=== PATIENT | male | born 1980 | race Hispanic/Latino ===

== ENCOUNTER 2021-01-25 09:30 | Emergency (ER) | payer OTHER, SELFPAY ==
[2021-01-25 09:48] VITALS: BP 132/75; PULSE 59; RESP 16; TEMP 36.6; O2SAT 100
--- NOTE | 2021-01-25 10:16 | ED.BACK ---
HPI - Back Pain/Injury General Chief Complaint: Back Pain/Injury Stated Complaint: back pain Time Seen by Provider: 01/25/21 10:10 Source: patient Mode of arrival: ambulatory Limitations: no limitations History of Present Illness HPI Narrative: Santo Thorpe is a 40-year-old male who comes to [facility] with pain in his lower right back that started 2 days ago when he was digging for work and and yesterday when he was taking a got much worse. He is walking and sitting stiffly, has pinpoint pain at the base of his lumbar spine on the right. He tried some Aleve with no improvement Related Data Allergies Allergy/AdvReac Type Severity Reaction Status Date / Time No Known Allergies Allergy Verified 01/25/21 09:58 Review of Systems Review of Systems: Narrative: CONSTITUTIONAL: Denies fever, chills, sweats. EYES: Denies visual changes, redness, discharge. ENT: Denies rhinorrhea, congestion, sore throat, otalgia. CARDIOVASCULAR: Denies chest pain, palpitations, edema. RESPIRATORY: Denies dyspnea, wheezing, cough GASTROINTESTINAL: Denies abdominal pain, nausea, vomiting, diarrhea. GENITOURINARY: Denies dysuria, hematuria, abnormal discharge SKIN: Denies rash or itching. NEUROLOGIC: Denies numbness, or focal weakness. PSYCHIATRIC: Denies anxiety or depression. Right-sided lower lumbar pain PMFSH Past Medical History Medical History No acute medical problems Family History Family History Other Diabetes mellitus Social History Social History (Updated 01/25/21 @ 10:20 by Patrica Stanley CNP) Smoking packs per day: 1 Smoking cigarettes per day: 20.0 Smoking status: Current every day smoker Alcohol intake: current Gender identity (if verbalized by the patient): Male Comments At time of signature, I agree with nursing past medical, surgical, social and family history. There is no relevant family history pertinent to the presenting complaint. Exam Narrative: Exam Narrative: GENERAL: This is a well-nourished, well-developed patient, in mild distress. HEAD: normocephalic, atraumatic. EYES: Sclera clear/white. Vision is grossly intact. EARS: External ears normal. Hearing grossly intact. NOSE: External nose normal without nasal discharge, nares without redness, no rhinorrhea. THROAT: Mucous membranes moist, NECK: Neck supple, non-tender CARDIOVASCULAR: Regular rate and rhythm without murmurs, gallops, or rubs. RESPIRATORY: Clear to auscultation. Breath sounds equal bilaterally. No wheezes, rales, or rhonchi. GASTROINTESTINAL: Abdomen soft, non-tender, SKIN: warm, intact with no suspicious lesions or rash, good texture and turgor. NEURO: awake, alert, and oriented to person, place and time. There were no obvious focal neurologic abnormalities. Steady gait EXTREMITIES: Normal range of motion. BACK: Tender on lower right without deformity. Patient is moving stiffly Course Course Emergency Course: 4-year-old patient comes to [facility] with complaints of lower right back pain that is aggravated by taking the job he works at Prefer sciatica started on prednisone 60 mg today with a Medrol Dosepak, baclofen, ibuprofen, tramadol Discussed stretching exercises and not mixing alcohol with pain medication Vital Signs Vital signs: Vital Signs Temperature 97.9 F 01/25/21 09:48 Pulse Rate 59 L 01/25/21 09:48 Respiratory Rate 16 01/25/21 09:48 Blood Pressure 132/75 01/25/21 09:48 Pulse Oximetry 100 01/25/21 09:48 Temperature 97.9 F 01/25/21 09:48 Pulse Rate 59 L 01/25/21 09:48 Respiratory Rate 16 01/25/21 09:48 Blood Pressure 132/75 01/25/21 09:48 Pulse Oximetry 100 01/25/21 09:48 MDM - Back Pain/Injury Differential Diagnosis Differential diagnosis: Likely lumbar radiculopathy, sciatica, strain of lumbar region and other Critical Care Time Critical Care Time Crit
[2021-01-25] MEDS: predniSONE 20 MG TABLET 60 MG PO (10:35)
== END 2021-01-25 10:35 | disposition home or self-care (01) ==
PROVIDERS: Emergency Provider Nurse Practitioner
DX: M54.31 Sciatica, right side (principal); F17.210 Nicotine dependence, cigarettes, uncomplicated
CPT/HCPCS: 99213; G0463; J7512

== ENCOUNTER 2021-06-07 16:06 | Emergency (ER) | payer OTHER, SELFPAY ==
[2021-06-07 16:22] VITALS: BP 145/87; PULSE 74; RESP 16; TEMP 37.2; O2SAT 99
--- NOTE | 2021-06-07 16:49 | ED.GENADULT ---
HPI - General Adult General Chief complaint: Ear Stated complaint: Left Ear Pain Source: patient and family (, Significant other. ) Mode of arrival: ambulatory Limitations: no limitations History of Present Illness HPI narrative: 40 y/o male. PMHx none reported. Presents to [facility] today with acute complaints of LT side ear ache, worsening in the past 72 hours. Pt denies acute auditory trauma or loss. No nasal congestion, cough, or additional illness. He reports a 'throbbing' type sensation, refractory to home remedies. He is without additional acute c/o illness upon PE. Related Data Allergies Allergy/AdvReac Type Severity Reaction Status Date / Time No Known Allergies Allergy Verified 06/07/21 16:20 Review of Systems Review of Systems: CONSTITUTIONAL: Denies fever, chills, sweats. EYES: Denies visual changes, redness, discharge. ENT: Denies rhinorrhea, congestion, sore throat. Positive otalgia LT. CARDIOVASCULAR: Denies chest pain, palpitations, edema. RESPIRATORY: Denies dyspnea, wheezing, cough GASTROINTESTINAL: Denies abdominal pain, nausea, vomiting, diarrhea. GENITOURINARY: Denies dysuria, hematuria, abnormal discharge SKIN: Denies rash or itching. MUSCULOSKELETAL: Denies acute back pain, joint pain, or myalgia. NEUROLOGIC: Denies numbness, or focal weakness. PSYCHIATRIC: Denies anxiety or depression. All systems reviewed & are unremarkable except as noted in HPI and below PMFSH Past Medical History Medical History No acute medical problems Family History Family History Other Diabetes mellitus Social History Social History Smoking packs per day: 1 Smoking cigarettes per day: 20.0 Smoking status: Current every day smoker Alcohol intake: current Gender identity (if verbalized by the patient): Male Exam Narrative: GENERAL: This is a well-nourished, well-developed adult, in no apparent distress. HEAD: normocephalic, atraumatic. EYES: PERRL. EARS: External ears normal. Lt auditory canal is erythematous with TM Bulging. No TM perforation or obstruction. RT auditory exam is normal. No auditory loss. NOSE: External nose normal. No Rhinorrhea, no obstruction, nares patent. THROAT: Mucous membranes moist, posterior pharynx clear. No exudates. NECK: Neck supple, non-tender without lymphadenopathy, masses or thyromegaly. CARDIOVASCULAR: Regular rate and rhythm without murmurs, gallops, or rubs. RESPIRATORY: Clear to auscultation. GASTROINTESTINAL: Abdomen soft, non-tender, nondistended. SKIN: warm, intact NEURO: Alert, active, and age appropriate. No focal neurologic deficits. Course Vital Signs Vital signs: Vital Signs Temperature 37.2 C 06/07/21 16:22 Pulse Rate 74 06/07/21 16:22 Respiratory Rate 16 06/07/21 16:22 Blood Pressure 145/87 H 06/07/21 16:22 Pulse Oximetry 99 06/07/21 16:22 Temperature 37.2 C 06/07/21 16:22 Pulse Rate 74 06/07/21 16:22 Respiratory Rate 16 06/07/21 16:22 Blood Pressure 145/87 H 06/07/21 16:22 Pulse Oximetry 99 06/07/21 16:22 Medical Decision Making MDM Narrative Medical decision making narrative: -Physical exam is consistent with Otitis Media LT. -No auditory deficits. -Start Neomycin Polymyxin Gtts regimen as directed. IBU 800 PO TID PRN for pain. -PCP F/U 1 WK. -ER W/emergent health status changes. Pt agrees. Differential Diagnosis Differential Diagnosis: Differential Diagnosis: Consideration of the following conditions may be warranted for the presenting problem, they are not final diagnoses: Otitis media, otitis externa, perforated TM, foreign body or cerumen impaction, ruptured TM, acute mastoiditis, dental or intraoral infection, or other. Medical Records Medical records reviewed: Yes I reviewed the external salty
== END 2021-06-07 16:39 | disposition home or self-care (01) ==
PROVIDERS: Emergency Provider Nurse Practitioner Adult Health
DX: H60.92 Unspecified otitis externa, left ear (principal); F17.210 Nicotine dependence, cigarettes, uncomplicated
CPT/HCPCS: 99213; G0463

== ENCOUNTER 2021-11-28 16:02 | Emergency (ER) | payer OTHER, SELFPAY ==
--- NOTE | ~2021-11-28 | XR_ITS ---
EXAMINATION: XR chest 2V DATE: 11/28/2021 16:33 INDICATION: Shortness of breath. TECHNIQUE: Frontal and lateral views of the chest were obtained. COMPARISON: Thoracic spine radiographs 12/17/2016 FINDINGS: The chest demonstrates clear lungs without pneumonia, pleural effusion, or pneumothorax. Th e heart size is normal. IMPRESSION: 1. No acute cardiopulmonary disease. Reviewed, dictated and finalized at location A.
--- NOTE | 2021-11-28 16:03 | ED.SOB ---
HPI - SOB/Dyspnea General Chief Complaint: Upper Respiratory Infection Stated Complaint: sob/back pain Time Seen by Provider: 11/28/21 16:15 Source: patient Mode of arrival: ambulatory Limitations: no limitations History of Present Illness HPI Narrative: Mr. Anderson is a 40-year-old male patient presenting to the clinic today with complaints of shortness of breath and back pain. 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 Reports that it hurts to sit and change positions however laying down helps alleviate the pain. Shortness of breath started this morning as he is also having some acid reflux symptoms. Reports of burning pain into the midsternal area that is radiating up into the throat and is having difficulty breathing during this pain. He is a current smoker and is currently in taking alcohol. States that he is drinking at least (6)24 ounce beers daily and he is smoking while drinking. Currently rates pain in the back a 10 out of 10 and pain in chest and 8 out of 10. Related Data Allergies Allergy/AdvReac Type Severity Reaction Status Date / Time No Known Allergies Allergy Verified 06/07/21 16:20 Review of Systems Review of Systems: Pertinent positives per HPI. Patient denies any fever, chills, rash, headache, visual changes, dizziness, cough, runny nose, sore throat, chest pain, palpitations, nausea, vomiting, diarrhea, constipation, abdominal pain, or any urinary issues. PMFSH Past Medical History Medical History No acute medical problems Family History Family History Other Diabetes mellitus Social History Social History Smoking packs per day: 1 Smoking cigarettes per day: 20.0 Smoking status: Current every day smoker Alcohol intake: current Gender identity (if verbalized by the patient): Male Comments At the time of my signature, I reviewed and agree with the nursing past medical, surgical, social, and family history. There is no relevant family history pertinent to the patient complaint. Exam Narrative: General: Well-developed, well nourished, in no apparent distress Head: Normocephalic, atraumatic Eyes: Pupils equally round and reactive to light bilaterally, EOM intact, sclera and conjunctive clear, no discharge, lids normal Ears: TMs intact and clear, ear canals clear, no drainage, grossly hearing normal. Nose: Nares patent, no discharge, no inflammation, no sinus tenderness. Mouth: Oropharynx without lesions or masses, good dentition, MMM. Neck: Supple, trachea midline, no enlargement of anterior or posterior cervical nodes, no thyroid masses or goiter palpable. Cardio: Regular rate and rhythm, s1 and s2 normal, no murmur appreciated. Resp: Clear to auscultation bilaterally anteriorly and posteriorly, no rhonchi, rales, wheezing or rubs Musculoskeletal: No deformity, no scoliosis, tenderness to palpation over the right lower back with exacerbating pain with bending and flexing the back, patellar reflexes 2/4 bilaterally, straight leg test positive on the right at approximately 35 degrees, negative foot drop, cautious gait. Slow to change position Course Course Emergency Course: Portions of this record may have been created with voice recognition software. Level of Care: Express Care Visit Vital Signs Vital signs: Vital Signs Temperature 37.1 C 11/28/21 16:12 Pulse Rate 72 11/28/21 16:12 Respiratory Rate 16 11/28/21 16:12 Blood Pressure 167/96 H 11/28/21 16:12 Pulse Oximetry 99 11/28/21 16:12 Temperature 37.1 C 11/28/21 16:12 Pulse Rate 72 11/28/21 16:12 Respiratory Rate 16 11/28/21 16:12 Blood Pressure 167/96 H 11/28/21 16:12 Pulse Oximetry 99 11/28/21 16:12 Vital signs reviewe
[2021-11-28 16:12] VITALS: BP 167/96; PULSE 72; RESP 16; TEMP 37.1; O2SAT 99
[2021-11-28] MEDS: KETOROLAC (*BKC) 60 MG/2 ML VIAL IM (16:48)
[2021-11-28] MEDS: BELLADONNA ALK/PHENOB ELIX 10 ML, MAG HYDROX/ALUMINUM HYD/SIMETH 30 ML, LIDOCAINE HCL 2... PO (16:53)
== END 2021-11-28 17:19 | disposition home or self-care (01) ==
PROVIDERS: Emergency Provider Nurse Practitioner Family
DX: S39.012A Strain of muscle, fascia and tendon of lower back, initial encounter (principal); X50.3XXA Overexertion from repetitive movements, initial encounter; Y93.H1 Activity, digging, shoveling and raking; Y99.0 Civilian activity done for income or pay; K21.9 Gastro-esophageal reflux disease without esophagitis; F17.210 Nicotine dependence, cigarettes, uncomplicated
CPT/HCPCS: 71046; 96372; 99213; A9270; G0463; J1885

== ENCOUNTER 2023-01-22 20:56 | Emergency (ER) | payer OTHER, SELFPAY ==
[2023-01-22 21:12] VITALS: BP 161/86; PULSE 78; RESP 18; TEMP 36.8; O2SAT 98
--- NOTE | 2023-01-22 21:41 | PC.NURSE ---
states pt was installing wooden posts approx 1.5 hrs ago when one came down on his right shoulder and struck the right side of his head. Approx 2cm laceration noted. Bleeding is controlled. Pt denies LOC but does endorse mild dizziness. Denies n/v. Not up to date on tetanus.
[2023-01-22] MEDS: ACETAMINOPHEN 500 MG TABLET 1000 MG PO (22:54)
[2023-01-22] MEDS: TETANUS,DIPHTHERIA,AC PERTUSSIS ADULT (0.5 ML) BOOSTRIX IM (22:55)
--- NOTE | 2023-01-22 23:03 | ED.GENADULT ---
HPI - General Adult General Chief complaint: Head Injury Stated complaint: head injury Time Seen by Provider: 01/22/23 21:32 History of Present Illness HPI narrative: this is a 42-year-old male presenting ED with chief complaint of a head laceration. He was at work when a piece of wood fell and struck the back his head. He has no loss of consciousness, no persistent vomiting or neurologic deficits. He has a 2.5 cm laceration to back of scalp. Unknown last tetanus. Related Data Allergies Allergy/AdvReac Type Severity Reaction Status Date / Time No Known Allergies Allergy Verified 01/22/23 22:54 Exam Narrative: APPEARANCE: No apparent distress. Head: 2.5 cm laceration to the patient's scalp EYES: EOMI, NOSE: Atraumatic NECK: Trachea midline RESPIRATORY: No increased rate of breathing CARDIOVASCULAR: RRR, ABDOMINAL: Non-distended MUSCULOSKELETAl: No obvious deformities NEURO: Alert. Cranial nerves 2-12 grossly intact. Sensation light touch, motor function cerebellar function intact for 4 extremities. Gait exam was normal. SKIN:: Warm, dry. Normal color PSYCHIATRIC: Normal affect Course Vital Signs Vital signs: Vital Signs Temperature 98.3 F 01/22/23 21:12 Pulse Rate 78 01/22/23 21:12 Respiratory Rate 18 01/22/23 21:12 Blood Pressure 161/86 H 01/22/23 21:12 Pulse Oximetry 98 01/22/23 21:12 Oxygen Delivery Room Air 01/22/23 21:12 Temperature 98.3 F 01/22/23 21:12 Pulse Rate 78 01/22/23 21:12 Respiratory Rate 18 01/22/23 21:12 Blood Pressure 161/86 H 01/22/23 21:12 Pulse Oximetry 98 01/22/23 21:12 Oxygen Delivery Room Air 01/22/23 21:12 Procedures Laceration Laceration 1: Date: 01/22/23 Site: scalp Side (If applicable): right Size (cm): 2.5 Description: linear Depth: simple, single layer ====== Skin Level ====== Skin layer closed with: candis ====== Subcutaneous Layer ====== ====== Muscle Layer ====== ====== Tendon Layer ====== Medical Decision Making [facility] Narrative Medical decision making narrative: -Presentation: 42-year-old male presenting with scalp laceration. -DDX includes but is not limited to: Scalp laceration, concussion -Co-morbidities complicating care: none tetanus status -Social determinants of health: patient works in construction, lives with his Teresa -External Chart Review: none -Hx from independent Sources: bedside -Discussion of Management/Consultants: none -Independent interpretation of studies: none Dx tests considered but not ordered: CT head - Low risk per [place] [facility] rules. -Procedures: laceration repair with candis -Interventions: Tdap booster , Tylenol -Shared decision making / Disposition: patient is discharged with primary care follow-up. -RX Vital Signs Vital Signs: Vital Signs Temperature 98.3 F 01/22/23 21:12 Pulse Rate 78 01/22/23 21:12 Respiratory Rate 18 01/22/23 21:12 Blood Pressure 161/86 H 01/22/23 21:12 Pulse Oximetry 98 01/22/23 21:12 Oxygen Delivery Room Air 01/22/23 21:12 Temperature 98.3 F 01/22/23 21:12 Pulse Rate 78 01/22/23 21:12 Respiratory Rate 18 01/22/23 21:12 Blood Pressure 161/86 H 01/22/23 21:12 Pulse Oximetry 98 01/22/23 21:12 Oxygen Delivery Room Air 01/22/23 21:12 Discharge Plan Discharge Clinical Impression: Closed head injury, Scalp injury Patient Disposition: Home, Self-Care Condition: Stable Instructions: Antibiotic Form, Concussion (ED), Staple Care (ED) Additional Instructions: You were seen in the emergency department for a scalp laceration. Please return to a medical professional in 7 days to have it removed. He can return at any time if you develop altered mental status, persistent vomiting or weakness in extremity. Follow-up/Referrals: PHYSICIAN,TRAVEL WRITER [Primary Care Provider] -
[2023-01-22 23:30] VITALS: BP 140/74; PULSE 90; RESP 15; TEMP 37; O2SAT 100
== END 2023-01-22 23:30 | disposition home or self-care (01) ==
PROVIDERS: Emergency Provider Emergency Medicine
DX: S01.01XA Laceration without foreign body of scalp, initial encounter (principal); Z23 Encounter for immunization; W20.8XXA Other cause of strike by thrown, projected or falling object, initial encounter
CPT/HCPCS: 12001; 90471; 90715; 99283; A9270

== ENCOUNTER 2023-01-30 16:48 | Emergency (ER) | payer OTHER, SELFPAY ==
--- NOTE | 2023-01-30 16:56 | ED.WOUNDLAC ---
HPI - Wound/Laceration General Chief Complaint: Wound/Laceration Stated Complaint: Staple Removal Time Seen by Provider: 01/30/23 16:57 Source: patient Mode of arrival: ambulatory Limitations: no limitations History of Present Illness HPI narrative: Patient is a 42-year-old male who presents with 4 candis and head that were placed 01/22. Is asking for removal. Denies any headache, vision changes, nausea, vomiting, or oozing from wound. Related Data Home Medications Medication Instructions Recorded Confirmed No Home Medications 01/30/23 01/30/23 Allergies Allergy/AdvReac Type Severity Reaction Status Date / Time No Known Allergies Allergy Verified 01/30/23 16:57 Review of Systems Review of Systems: All systems reviewed & are unremarkable except as noted in HPI and below Constitutional: Constitutional: Denies body ache(s), Denies chills, Denies fatigue, Denies fever(s), Denies headache(s), Denies malaise and Denies weakness Eyes: Eyes: Denies blurry vision, Denies irritation and Denies loss of vision ENT: Denies otalgia, Denies headache(s), Denies nasal discharge, Denies sinus pain and Denies sore throat Cardiovascular: Cardiovascular: Denies chest pain, Denies irregular heart rhythm and Denies dyspnea Respiratory: Respiratory: Denies dyspnea Gastrointestinal: Gastrointestinal: Denies abdominal pain, Denies melena, Denies hematochezia, Denies diarrhea, Denies nausea and Denies vomiting Musculoskeletal: Musculoskeletal: Denies back pain, Denies myalgias and Denies arthralgias Integumentary/Breasts: Skin/Breast: Denies pruritus, Denies rash and Reports other (Staple removal from head) Neurologic: Denies headache(s), Denies loss of vision and Denies weakness Psychiatric: Psychiatric: Reports no additional psychiatric complaints Endocrine: Endocrine: Denies fatigue PMFSH Past Medical History Medical History (Updated 01/30/23 @ 17:06 by Madie Santos APRN) No acute medical problems Family History Family History (System 01/27/23 @ 09:52 by Ruchi Gomez) Other Diabetes mellitus Social History Social History (System 01/27/23 @ 09:52 by Ruchi Gomez) Smoking packs per day: 1 Smoking cigarettes per day: 20.0 Smoking status: Current every day smoker Alcohol intake: current Gender identity (if verbalized by the patient): Male Comments At time of signature, agree with nursing past medical, surgical, social and family history. There is no relevant family history pertinent to the presenting complaint. Exam Const: General: cooperative, healthy appearing, comfortable, no acute distress and well nourished Nutritional Appearance: well nourished Orientation/consciousness: patient oriented x3 Limitations: no limitations HENMT: Head: normal to inspection, normocephalic, atraumatic and laceration (4 candis removed) right parietal linear Ears: hearing grossly normal bilaterally and external ears normal Face/Nose/Sinus: Normal external nose present, normal facial exam and face symmetric Face and sinus: normal facial exam and face symmetric Mouth: Yes lip normal Eyes: General: appearance normal, both eyes and all related structures Alignment and Position: alignment normal and position normal Periorbital: periorbital findings normal Eyelids: eyelids normal Pupils: Equal, round and reactive pupils present EOM: EOMs intact bilaterally Neck: Neck: normal visual inspection, full ROM and supple Chest: Chest palpation & inspection: normal inspection of the chest Resp: Effort & Inspection: normal respiratory effort and able to speak in complete sentences Auscultation: clear to auscultation bilaterally Cardio: Rate: regular rate Rhythm: regular rhythm Heart sounds: S1 normal heart sound present and S2 normal heart sound present GI: Inspection: normal to inspection Skin: General skin exam: normal color and no rashes or lesions noted Neuro: General: patient oriented x3 and moves all e
[2023-01-30 16:58] VITALS: BP 145/80; PULSE 84; RESP 16; TEMP 37.2; O2SAT 97
== END 2023-01-30 17:08 | disposition home or self-care (01) ==
PROVIDERS: Emergency Provider Nurse Practitioner Family
DX: S01.01XD Laceration without foreign body of scalp, subsequent encounter (principal); X58.XXXD Exposure to other specified factors, subsequent encounter; F17.210 Nicotine dependence, cigarettes, uncomplicated
CPT/HCPCS: 99211; G0463

== ENCOUNTER 2024-02-20 22:18 | Emergency (ER) | payer OTHER, SELFPAY ==
[2024-02-20 22:20] VITALS: BP 151/104; PULSE 110; RESP 20; TEMP 36.4; O2SAT 99
--- NOTE | 2024-02-20 23:04 | PC.NURSE ---
Patient and his come to desk to state they are leaving and going to a different hospital. Patient informed of risks of leaving before being seen by a provider and benefits of staying to be evaluated. Patient and a/ox4, verbalized understanding and ambulated out of the ED with a steady gait with belongings in hand. Patient marked as left without being seen, triaged.
== END 2024-02-20 23:05 | disposition left against medical advice (07) ==
LOC: ANHED 23:08
DX: R11.2 Nausea with vomiting, unspecified (principal)
CPT/HCPCS: 99199

== ENCOUNTER 2024-02-21 10:28 | Emergency (ER) | payer OTHER, SELFPAY ==
[2024-02-21 10:41] VITALS: BP 156/85; PULSE 66; RESP 16; TEMP 36.8; O2SAT 100
--- NOTE | 2024-02-21 10:56 | ED.GENADULT ---
HPI - General Adult General Chief complaint: Dizziness Stated complaint: heartburn/dizzy Time Seen by Provider: 02/21/24 10:56 Source: patient Mode of arrival: ambulatory Limitations: no limitations History of Present Illness HPI narrative: 43-year-old male presents with complaint of epigastric pain radiating to mid back, burning feeling in esophagus, dizziness, fatigue, nausea, sweating since yesterday. Patient went to ER last night. Visitor states he waited 30 minutes and left. felt that there were too many people waiting and waiting room. Taking [id number] omeprazole without relief of symptoms. Patient reports history of similar symptoms and was given Protonix which helped. Did eat several spicy foods yesterday for 18 of February celebration and also drank a beer. States drink a soda and made symptoms worse. All systems reviewed and negative except as noted above. Related Data Allergies Allergy/AdvReac Type Severity Reaction Status Date / Time No Known Allergies Allergy Verified 02/21/24 10:48 Review of Systems Review of Systems: CONSTITUTIONAL: Denies fever, chills . Reports sweats and fatigue. EYES: Denies visual changes, redness, or discharge. ENT: Denies rhinorrhea, congestion, sore throat, or otalgia. CARDIOVASCULAR: Denies chest pain, palpitations, or edema. RESPIRATORY: Denies cough or dyspnea. GASTROINTESTINAL: Ports epigastric abdominal pain, nausea. Denies vomiting, or diarrhea. GENITOURINARY: Denies dysuria or hematuria. SKIN: Denies rash or itching. MUSCULOSKELETAL: Denies back pain, joint pain, or myalgia. NEUROLOGIC: Denies headache, numbness, or weakness. reports dizziness. PSYCHIATRIC: Denies anxiety or depression. All other systems reviewed are negative, except as documented in HPI. [facility] Past Medical History Medical History (Updated 02/21/24 @ 11:27 by Key Orellana NP) No acute medical problems Family History Family History (System 01/27/23 @ 09:52 by Ruchi Gomez) Other Diabetes mellitus Social History Social History (System 01/27/23 @ 09:52 by Ruchi Gomez) Smoking packs per day: 1 Smoking cigarettes per day: 20.0 Smoking status: Current every day smoker Alcohol intake: current Gender identity (if verbalized by the patient): Male Comments At time of signature, agree with nursing past medical, surgical, social and family history. There is no relevant family history pertinent to the presenting complaint. Exam Narrative: GENERAL: This is a well-nourished, well-developed patient, in no apparent distress. HEAD: normocephalic, atraumatic. EYES: PERRL. Sclera clear/white. Vision is grossly intact. EARS: External ears normal NOSE: External nose normal NECK: Neck supple, non-tender without lymphadenopathy, masses or thyromegaly. CARDIOVASCULAR: Regular rate and rhythm without murmurs, gallops, or rubs. RESPIRATORY: Clear to auscultation. Breath sounds equal bilaterally. No wheezes, rales, or rhonchi. GASTROINTESTINAL: Abdomen soft, Epigastric pain, nondistended. Bowel sounds are active. No hepato-splenomegaly, or palpable masses. No guarding. SKIN: warm, Dry, intact with no suspicious lesions or rash, good texture and turgor. NEURO: awake, alert, and oriented to person, place and time. There were no obvious focal neurologic abnormalities. EXTREMITIES: No joint tenderness, effusion, or edema noted. Course Course Level of Care: Express Care Visit Vital Signs Vital signs: Vital Signs Temperature 36.8 C 02/21/24 10:41 Pulse Rate 66 02/21/24 10:41 Respiratory Rate 16 02/21/24 10:41 Blood Pressure 156/85 H 02/21/24 10:41 Pulse Oximetry 100 02/21/24 10:41 Oxygen Delivery Room Air 02/21/24 10:41 Temperature 36.8 C 02/21/24 10:41 Pulse Rate 66 02/21/24 10:41 Respiratory Rate 16 02/21/24 10:41 Blood Pressure 156/85 H 02/21/24 10:41 Pulse Oximetry 100 02/21/24 10:41 Oxygen Delivery Room Air
--- NOTE | 2024-02-21 11:08 | ECG_ITS ---
Test Date: 2024-02-21 11:19:26 Measurements Intervals [place] Rate: 69 P: 54 [place]: 191 QRS: -33 QRSD: 97 T: -12 QT: 378 QTc: 405 Interpretive Statements SINUS RHYTHM LEFT AXIS DEVIATION VOLTAGE CRITERIA FOR LVH BORDERLINE T WAVE ABNORMALITY- INFERIOR LEADS BORDERLINE ECG No previous ECG available for comparison Electronically Signed On 02-21-2024 14:13:11 CDT by Sahil Boswell D.O.
== END 2024-02-21 11:39 | disposition left against medical advice (07) ==
PROVIDERS: Emergency Provider Nurse Practitioner Family
DX: R10.13 Epigastric pain (principal); R42 Dizziness and giddiness; F17.210 Nicotine dependence, cigarettes, uncomplicated
CPT/HCPCS: 93005; 99213; G0463

== ENCOUNTER 2024-12-27 22:21 | Emergency (ER) | payer OTHER, SELFPAY ==
--- NOTE | ~2024-12-27 | XR_ITS ---
EXAMINATION: XR chest 2V Exam Date/Time: 12/27/2024 22:45 CDT HISTORY: chest pain Comparison: 11/28/2021. RESULT: Lines, tubes, and devices: None. Lungs and pleura: No focal consolidation, pleural effusion, or pneumothorax. Low volumes with crowdi ng. Cardiomediastinal silhouette: Stable. Other: No acute osseous or upper abdominal finding. IMPRESSION: No acute cardiopulmonary process. Reviewed, dictated and finalized at location K.
--- OUTSIDE RECORDS SUMMARY | 2024-12-27 22:24 | XMS_ITS | Patient Health Record ---
Author Organization [facility]ILL[facility]AC[facility] [email or web address] [facility] Address [address] [place] [address] Care Team Providers Care Barrel Stave Inspector Name Role Phone Kendra Ramirez Primary Care Provider [phone] REASON FOR REFERRAL No Information PLAN OF TREATMENT No Information
--- OUTSIDE RECORDS SUMMARY | 2024-12-27 22:24 | XMS_ITS | Patient Health Record ---
Author Organization [facility] [employer] [facility] Address [address] [place] [address] Care Team Providers Care Alcohol Rubber Name Role Phone Kendra Ramirez Primary Care Provider ALLERGIES No Known Allergies RESULTS Component Value Reference Range Notes Glucose Blood Test Reviewed date:02/24/2024 09:41:31 AM Interpretation: Performing Lab: Notes/Report: Glucose Blood Test 75 74 - 106 Area Relief Pilot Ramila SCHMIDT REASON FOR REFERRAL No Information MEDICATIONS Medication SIG (Take, Route, Fr equency, Duration) Notes Start Date End Date Status Advil 200 MG 1 tablet with food o r milk as needed Orally Three times a day Active Aspirin 325 MG 1 capsule Orally Once a day Active SOCIAL HISTORY Tobacco Use: Social History Observation Description Date Details (start date - stop date) Former Smoker NA - 10/06/2023 Sex Assigned At : Social History Observation Description Sex Assigned At Unknown Tobacco Use/Smoking Question Answer Notes Are you a former user When did you stop using? 10/06/2023 Alcohol Questionnaire Question Answer Notes Did you have a drink contain ing alcohol in the past year? Yes How often did you have a dri nk containing alcohol in the past year? 4 or more times a week (4 points) How many drinks did you have on a typical day when you were drinking in the past year? 5 or 6 drinks (2 points) How often did you have 6 or more drinks on one occasion in the past year? Daily or almost daily (4 points) Points 10 Interpretation Positive Section Notes: started at 13 y/o, periods o f time when he didn't smoke, but about 1/2 ppd PROBLEMS Problem Type ICD Code Onset Dates Problem Status W/U Status Risk SNOMED Code Notes Problem BMI 34.0-34.9,adult (Z68.34) Active confirmed Body mass index 30.00 to 34.99 (674688001724721) Problem Prediabetes (R73.09) Active confirmed Prediabetes (961423238) Problem Smoker (F17.200) Active confirmed Smoker (81122814) Problem GERD (gastroesophage al reflux disease) (K21.9) Active confirmed Gastroesophagea l reflux disease (813240784) Problem Obesity (E66.9) Active confirmed Obesit y (010312983) VITAL SIGNS Heart Rate 78 /min 02/24/2024 Temperature 98.1 degrees Fahrenheit 02/24/2024 Respiratory Rate 14 /min 02/24/2024 Oximetry 98 % 02/24/2024 Blood pressure diastolic 72 mm Hg 02/24/2024 Weight-kg 100.7 kg 02/24/2024 Height 68 in 02/24/2024 Blood pressure systolic 126 mm Hg 02/24/2024 Weight 222 lbs 02/24/2024 BMI 33.75 02/24/2024 Encounters Encounter Location Date Provider Diagnosis [facility] [address] [place] [address] 01/20/2024 Kendra [facility] [address] [place] [address] [facility] [address] [place] [address] 01/22/2024 Kendra [facility] [address] [place] [address] 02/24/2024 Kendra Ramirez Dizziness R42 ; GI symptoms R19.8 and Prediabetes R73.03 [facility] [address] [place] [address] 04/12/2024 Kendra [facility] [address] [place] [address] 10/21/2024 Kendra Ramirez ASSESSMENTS Encounter Date Diagnosis Assessment Notes Treatment Notes Treatment Clinical Notes Section Notes 02/24/2024 Dizziness (ICD-10 - R42) Pt reportedly fasting since yesterday (>12 hours). BG checked given reported ssx dizziness, TAYLOR, occasional fuzzy vision upon change in position - 75. Pt has access to accu-check at home, encouraged to do so when ssx develop. Reviewed a1c indicating preDM 09/2023, encouraged frequent meals low in fat and simple carbs. Encouraged pt to pair complex carbs w/protein to help moderate BG levels. Advised good hydration throughout the day. Recheck labs 03/2024. 02/24/2024 GI symptoms (ICD-10 - R19.8) Suspect PUD/GERD 2/2 noncompliance with medication regimen - reports when pt was taking meloxicam he refused to eat with it, sometimes would add aspirin if he had a TAYLOR, and only took omeprazole PRN. She states he also returned to drinking and smoking and eating worse foods then this problem started. Educated he needs to abstain from ETOH, smoking, large meals, spicy/greasy meals, and reclining after eating. Advised pt to continue pantoproazole 40mg QD 6-8 wks total. Consider GI for eval and EGD consideration if no improvement or worsening condition. Pt voiced understanding and agreement with POC as discussed. All questions and concerns were addressed to pt satisfaction. F/U 6 wks or sooner PRN. 02/24/2024 Prediabetes (ICD-10 - R73.03) 09/2023 A1c at 5.9. Encouraged ADA diet, daily exercise, weight loss for WNL BMI, adequate hydration, sleep hygiene, stress reduction. RTC for 6 mo f/u in March. 02/24/2024 Other Pt declines wo rk note. PLAN OF TREATMENT No Information Insurance Providers Payer Name Payer Address Payer Phone Subscriber Number Group Number Insured Name Patient Relationship to Insured Coverage Start Date Coverage End Date [employer] [facility] [address] [address] [place] [address] [id number] [phone] Santo Anderson Self - patient is the insured MEDICAL (GENERAL) HISTORY Medical History History ICD Code GERD (gastroesophageal reflux disease) K 21.9 Prediabetes R73.09 Obesity E66.9 BMI 34.0-34.9,adult Z68.34 Smoker F17.200 Surgical History Surgery Date(Month/Year) appendectomy 2018 Hospitalization History Reason Date(Month/Year) Appendectomy 2018
--- OUTSIDE RECORDS SUMMARY | 2024-12-27 22:24 | XMS_ITS ---
Author Organization [facility]AC[facility] [employer] [facility] Address [address] [place] [address] Care Team Providers Care Leaf Conditioner Name Role Phone Kendra Ramirez Primary Care Provider REASON FOR VISIT F/U GI issues, preDM, labs Encounters Encounter Location Date Provider Diagnosis [address] [address] 03/30/2024 Kendra Ramirez PLAN OF TREATMENT No Information Progress Notes * Santo YARBROUGHDOB:1980 (44 yo M)Acc No.[id number]:03/30/2024 Patient: Santo YARBROUGH Provider: Kendra Ramirez APRN :1980 Age:43 Y Sex:Male Date:03/30/2024 Address:[address] [place], [place] [id number] Subjective: * Chief Complaints: * 1. F/U GI issues, preDM, labs. * Medical History: Objective: Assessment: Plan: * Treatment: * Billing Information: * Visit Code: * Procedure Codes: * The named appointment provid er may or may not be the originator of this progress note, and it is not deemed complete until electronically signed by the appointment provider. Sign off status: Pending * Provider: Kendra Ramirez APRN Date: 03/30/2024
--- OUTSIDE RECORDS SUMMARY | 2024-12-27 22:24 | XMS_ITS ---
Author Organization [facility] Address [address] [place] [address] Care Team Providers Care Toe Former Name Role Phone Kendra Ramirez Primary Care Provider Encounters Encounter Location Date Provider Diagnosis [facility] [address] [place] [address] 09/11/2023 Kendra Ramirez PLAN OF TREATMENT No Information
--- OUTSIDE RECORDS SUMMARY | 2024-12-27 22:24 | XMS_ITS ---
Author Organization [facility]AC[facility] [employer] [facility] Address [address] [place] [address] Care Team Providers Care Food And Beverage Controller Name Role Phone Kendra Ramirez Primary Care Provider [phone] RESULTS Component Value Reference Range Notes Urinalysis, Routine ([id number]) Reviewed date:09/30/2023 04:08:47 PM Interpretation:Normal Performing Lab: Notes/Report: Normal NTI Urine Tube (North) Request Problem Specimen Identification Status Specimen Status Report Request Problem Bacteria Cast Type Casts Comment Crystal Type Crystals Epithelial Cells (non renal) Epithelial Cells (renal) Mucus Threads NTI Urine Culture Transport RBC Trichomonas WBC Yeast Appearance Bilirubin Glucose 0 Glucose Reflex Ketones Microscopic Examination Nitrite, Urine Occult Blood 0 pH Protein 0 Specific [place] 1.01 Urinalysis Gross Exam Urine-Color Urobilinogen,Semi-Qn WBC Esterase Please note No Urine Received Specimen Identification Status REASON FOR VISIT DOT PE VITAL SIGNS Heart Rate 71 /min 09/30/2023 Blood pressure systolic 132 mm Hg 09/30/19 24 Blood pressure diastolic 76 mm Hg 024 Respiratory Rate 16 /min 09/30/2023 Weight 232 lbs 09/30/2023 Height 68 in 09/30/2023 BMI 35.27 09/30/2023 Weight-kg 105.23 kg 09/30/2023 Encounters Encounter Location Date Provider Diagnosis [facility] [address] [place] [address] 09/30/2023 Kendra Ramirez 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 PLAN OF TREATMENT Treatment Notes Assessment Notes Encounter for Department of Transportation (DOT) examination for nadi[place] license See medical Examination Report Form for details. Progress Notes * Santo ANDERSONDOB:1980 (42 yo M)Acc No.[id number]:09/30/2023 Patient: Santo ANDERSON Provider: Kendra Ramirez APRN :1980 Age:42 Y Sex:Male Date:09/30/2023 Address:[address] [place] [address], [facility] Subjective: * Chief Complaints: * DOT PE * HPI: *: Pt presents for c/o DOT physical. See form for details. * Medical History: * Surgical History: * Hospitalization/Major Diagno stic Procedure: * Medications: Objective: * Vitals: HR:71, BP:132/76mm Hg, RR:16/min, Wt:232lbs, Ht:68in, BMI:35.27, Wt-k.23 kg. Assessment: * Assessment: 1. Encounter for Department of Transportation (DOT) examination for nadi[place] license - Z02.4 (Primary) Plan: * Treatment: Value Reference Range Glucose 0 * Occult Blood 0 * Protein 0 * Specific [place] 1.01 Notes: See medical Examination Report Form for details.? * Procedure Codes: * Billing Information: * Visit Code: 85932 Level 2 New Patient DOT Physical. * Procedure Codes: * Sign off status: Completed true * Provider: Kendra Ramirez APRN Date: 09/30/2023
--- OUTSIDE RECORDS SUMMARY | 2024-12-27 22:24 | XMS_ITS ---
Author Organization [facility] [employer] [facility] Address [address] [place] [address] Care Team Providers Care Veterinary Receptionist Name Role Phone Kendra Ramirez Primary Care Provider REASON FOR VISIT PRTL: About eye exam Encounters Encounter Location Date Provider Diagnosis [address] [address] 04/12/2024 Kendra Ramirez PLAN OF TREATMENT No Information Progress Notes * Santo YARBROUGHDOB:1980 (43 yo M)Acc No.[id number]:04/12/2024 Patient: Santo YARBROUGH :1980 Age:43 Y Sex:Male Address:[address] [place] [address] Subjective: * Chief Complaints: * PRTL: About eye exam * Medical History: * Surgical History: * Hospitalization/Major Diagno stic Procedure: * Medications: Objective: Assessment: Plan: * Treatment: * Procedure Codes: * true * Date:
--- OUTSIDE RECORDS SUMMARY | 2024-12-27 22:24 | XMS_ITS ---
Author Organization [facility]ILLING [facility]ACILITY [facility] Address [address] [place] [address] Care Team Providers Care Support Engineer Name Role Phone Kendra Ramirez Primary Care Provider [phone] REASON FOR VISIT CPE Encounters Encounter Location Date Provider Diagnosis [facility] [address] [place] [address] 10/21/2024 Kendra Ramirez PLAN OF TREATMENT No Information Progress Notes * ZENON SantoDOB:1980 (43 yo M)Acc No.[id number]:10/21/2024 Patient: Santo YARBROUGH Provider: Kendra Ramirez APRN :1980 Age:43 Y Sex:Male Date:10/21/2024 Address:[address] [place], [place] [id number] Subjective: * Chief Complaints: * 1. CPE. * Medical History: Objective: Assessment: Plan: * Treatment: * Billing Information: * Visit Code: * Procedure Codes: * Sign off status: Completed true * Provider: Kendra Ramirez APRN Date: 10/21/2024
[2024-12-27 22:30] VITALS: BP 143/94; PULSE 66; RESP 20; TEMP 36.5; O2SAT 96
--- NOTE | 2024-12-27 22:30 | ECG_ITS ---
Test Date: 2024-12-27 22:37:05 Measurements Intervals [place] Rate: 73 P: 40 [place]: 191 QRS: -33 QRSD: 99 T: -7 QT: 347 QTc: 385 Interpretive Statements SINUS RHYTHM LEFT AXIS DEVIATION [QRS AXIS < -30] VOLTAGE CRITERIA FOR LVH [MEETS CRITERIA IN ONE OF: R(aVL), S(V1), R(V5), R(V5/V6)+S(V1)] NONSPECIFIC T WAVE ABNORMALITY Compared to ECG 02/21/2024 11:19:26 No significant changes Electronically Signed On 12-28-2024 14:56:52 CDT by Justin Harvey M.D.
[2024-12-27 22:32] VITALS: PULSE 72
--- NOTE | 2024-12-27 22:44 | ED.CHESTPAIN ---
HPI - Chest Pain General Chief Complaint: Chest Pain Stated Complaint: CHEST TIGHTNESS WITH COUGHING, BACK PAIN Time Seen by Provider: 12/27/24 22:39 Source: patient Mode of arrival: ambulatory Limitations: no limitations History of Present Illness HPI narrative: Patient is a 44-year-old male who presents the ED with report of chest pain. Patient reports around 10:00 a.m. this morning, he was eating breakfast and began having some pain throughout his upper abdomen, chest tightness, burning sensation. He then reported having recurrent pain around 2:00 p.m. after eating again. He began feeling short of breath with worsening chest tightness, nausea, abdominal bloating/fullness, pain radiating through to his back. Patient currently denies any active pain. Denies feeling short of breath currently. Denies pain or swelling in his legs, history of blood clots, recent travel, history of cardiac issues. He does have history of acid reflux and takes omeprazole, but denied improvement with this. Related Data Allergies Allergy/AdvReac Type Severity Reaction Status Date / Time No Known Allergies Allergy Verified 12/27/24 22:22 Review of Systems Review of Systems: All systems reviewed & are unremarkable except as noted in HPI. All systems reviewed & are unremarkable except as noted in HPI and below PMFSH Past Medical History Medical History No acute medical problems Family History Family History Other Diabetes mellitus Social History Social History Smoking packs per day: 1 Smoking cigarettes per day: 20.0 Smoking status: Current every day smoker Alcohol intake: current Gender identity (if verbalized by the patient): Male Exam Narrative: GENERAL: Well appearing, obese with BMI of 34.5, non-toxic, in no acute distress. HEAD: Normocephalic, atraumatic. RESPIRATORY: Airway patent, respirations nonlabored. Clear to auscultation bilaterally, no rales, rhonchi, wheezing. No focal lung sounds. CARDIOVASCULAR: Regular rate and rhythm without murmurs, rubs, or gallops. ABDOMINAL: Soft, no significant focal tenderness, nondistended. Normoactive BS. MUSCULOSKELETAL: Moves all extremities. No gross deformities. No significant tenderness throughout thoracic/lumbar region. SKIN: Warm, dry, normal color. NEURO: A&O X3. Speech clear. Cranial nerves II-XII grossly intact. Steady gait. No ataxic movements. PSYCHIATRIC: Appropriate mood and affect. Normal interaction. Course Vital Signs Vital signs: Vital Signs Temperature 97.7 F 12/27/24 22:30 Pulse Rate 66 12/27/24 22:30 Respiratory Rate 20 12/27/24 22:30 Blood Pressure 143/94 H 12/27/24 22:30 Pulse Oximetry 96 12/27/24 22:30 Temperature 97.7 F 12/27/24 22:30 Pulse Rate 72 12/28/24 01:52 Respiratory Rate 15 12/28/24 01:52 Blood Pressure 151/71 H 12/28/24 01:52 Pulse Oximetry 99 12/28/24 01:52 MDM - Chest Pain MDM Narrative Medical decision making narrative: EKG with no concerning ischemic changes. Does show some nonspecific T-wave inversions. No changes from EKG of last year. Troponin undetectable X2 HEART score =1 based on bmi, no other significant RFs CXR is clear D-dimer WNL Remainder of basic laboratory studies are unremarkable. Nml LFTs and lipase. Patient has remained asymptomatic throughout ED stay. He reported feeling markedly better after GI cocktail. Suspect gastritis/GERD as cause of patient's pain. Patient has previously been on omeprazole. Will increase to pantoprazole and add sucralfate. Will refer to GI for further evaluation. Discussed lifestyle modifications, very strict return precautions. Patient in agreement with plan, feels comfortable going home. Discharged in stable condition. Medical Records Data Attestation: I reviewed the patient's medical records. Lab Data Attestation: I reviewed the patient's lab results. 12/27/24 22:45 12/27/24 22:45 Labs: Lab Results 12/27/24 12/27/24 12/27/24 Range/Units 22:45 22:45 22:45 WBC 8.8 (4.5-10.0) K/mm3 RBC 4.85 (4.6-6.20) M/mm3 Hgb 14.5 (14.0-18.0) g/dL Hct 44.3 (42.0-52.0) % MCV 91.3 (80-100) fl MCH 29.9 (26-34) pg MCHC 32.7 (32-36) g/dl RDW 13.0 (11.5-14.5) % Plt Count 185 (150-375) k/mm3 MPV 12.2 H (7.4-10.4) fl Immature Gran % (Auto) 0.3 (0-0.5) % Neut % (Auto) 54.6 (45.5-73.1) % Lymph % (Auto) 34.8 (18.3-44.2) % [place] % (Auto) 7.5 (2.6-8.5) % Eos % (Auto) 2.2 (0-4.4) % Baso % (Auto) 0.6 (0.2-1.2) % Lymph # (Auto) 3.07 (0.9-3.2) K/mm3 [place] # (Auto) 0.7 H (0.1-0.6) K/mm3 Eos # (Auto) 0.2 (0-0.3) K/mm3 Baso # (Auto) 0.1 (0.0-0.1) K/mm3 Abs Immat Gran (auto) 0.03 (0.00-0.031) K/mm3 Absolute Neuts (auto) 4.8 (1.3-6.7) K/mm3 Absolute Nucleated RBC 0.000 (0.0-0.012) K/mm3 Nucleated RBC % 0.0 (0.0-0.2) % PT Cancelled 12.0 INR Cancelled 0.9 APTT Cancelled D-Dimer (<0.48) ug/mL Sodium (137-145) mmol/L Potassium (3.4-5.0) mmol/L Chloride (98-107) mmol/L Carbon Dioxide (22-30) mmol/L Anion Gap (4-12) mmol/L BUN (9-20) mg/dL Creatinine (0.7-1.3) mg/dL Estim Creat Clear Calc ml/min Estimated GFR (59 - ) Glucose (65-110) mg/dL Calcium (8.4-10.2) mg/dL Total Bilirubin (0.2-1.3) mg/dL AST (17-59) U/L ALT (6-50) U/L Alkaline Phosphatase (38-126) U/L Troponin I (0.000-0.034) ng/mL Total Protein (6.3-8.2) g/dL Albumin (3.5-5.1) g/dL Lipase (23-300) U/L 12/27/24 12/28/24 Range/Units 22:45 01:12 WBC (4.5-10.0) K/mm3 RBC (4.6-6.20) M/mm3 Hgb (14.0-18.0) g/dL Hct (42.0-52.0) % MCV (80-100) fl MCH (26-34) pg MCHC (32-36) g/dl RDW (11.5-14.5) % Plt Count (150-375) k/mm3 MPV (7.4-10.4) fl Immature Gran % (Auto) (0-0.5) % Neut % (Auto) (45.5-73.1) % Lymph % (Auto) (18.3-44.2) % [place] % (Auto) (2.6-8.5) % Eos % (Auto) (0-4.4) % Baso % (Auto) (0.2-1.2) % Lymph # (Auto) (0.9-3.2) K/mm3 [place] # (Auto) (0.1-0.6) K/mm3 Eos # (Auto) (0-0.3) K/mm3 Baso # (Auto) (0.0-0.1) K/mm3 Abs Immat Gran (auto) (0.00-0.031) K/mm3 Absolute Neuts (auto) (1.3-6.7) K/mm3 Absolute Nucleated RBC (0.0-0.012) K/mm3 Nucleated RBC % (0.0-0.2) % PT INR APTT 21.6 L D-Dimer 0.33 (<0.48) ug/mL Sodium 139 (137-145) mmol/L Potassium 4.0 (3.4-5.0) mmol/L Chloride 105 (98-107) mmol/L Carbon Dioxide 21 L (22-30) mmol/L Anion Gap 13 H (4-12) mmol/L BUN 15 (9-20) mg/dL Creatinine 0.81 (0.7-1.3) mg/dL Estim Creat Clear Calc 114 ml/min Estimated GFR > 60 (59 - ) Glucose 107 (65-110) mg/dL Calcium 9.5 (8.4-10.2) mg/dL Total Bilirubin 0.3 (0.2-1.3) mg/dL AST 49 (17-59) U/L ALT 51 H (6-50) U/L Alkaline Phosphatase 91 (38-126) U/L Troponin I < 0.012 < 0.012 (0.000-0.034) ng/mL Total Protein 8.0 (6.3-8.2) g/dL Albumin 4.8 (3.5-5.1) g/dL Lipase 115 (23-300) U/L Imaging Data Attestation: I personally reviewed and interpreted this imaging study as follows: Radiologist's impression: ITS Impressions Chest X-Ray 12/27/24 23:00 IMPRESSION: No acute cardiopulmonary process. ECG Data EKG #1: Attestation: I personally reviewed and interpreted this ECG as follows: ECG completion date: 12/27/24 ECG completion time: 22:37 Prior ECG tracings: available for review (no changes from EKG 02/21/2024) EKG Interpretation: normal rate (73), sinus rhythm, non-specific ST changes and left axis Discharge Plan Discharge Clinical Impression: Atypical chest pain, GERD (gastroesophageal reflux disease) Patient Disposition: Home Condition: Stable Instructions: Antibiotic Form, Chest Pain (ED), Diet for Stomach Ulcers and Gastritis (ED), GERD (Gastroesophageal Reflux Disease) (ED) Additional Instructions: Your workup here was reassuring. Your pain with likely related to acid reflux/stomach irritation. Recommend taking Protonix and sucralfate daily for acid reflux depression. Avoid foods that are very greasy, spicy, fatty, acidic. Avoid eating food late at night or lying flat immediately after eating. Recommend follow-up with primary care doctor and/or GI for further evaluation. Return to the ED if you experience worsening or severe pain, difficulty breathing, unable to keep down food or drink, vomiting blood, rectal bleeding, dark black stools, or any other symptoms of concern. Patient Language: Eritrean Prescriptions: New pantoprazole [Protonix] 40 mg tablet,delayed release (DR/EC) 40 mg PO HS 28 Days Qty: 28 0RF sucralfate 1 gram tablet 1 g PO QID Qty: 60 0RF No Action pantoprazole [Protonix] 40 mg tablet,delayed release (DR/EC) 40 mg PO HS 30 Days Qty: 30 0RF Follow-up/Referrals: Denny Nagy MD [Physician] - (GI) UNKNOWN,DOCTOR [Primary Care Provider] - Time of Disposition: 02:02 Quality HEART score for chest pain patients History: slightly suspicious ECG: normal Age: < or = to 45 years Risk factors: 1 or 2 risk factors Troponin: < or = to 1x normal limit Heart score: 1
[2024-12-27] MEDS: ASPIRIN 81 MG CHEWABLE TABLET 324 MG PO (22:46)
[2024-12-27 23:13] LABS: Basophils Absolute Auto 0.1 K/mm3 (0.0-0.1); Basophils Percent Auto 0.6 % (0.2-1.2); Eosinophils Absolute Auto 0.2 K/mm3 (0-0.3); Eosinophils Percent Auto 2.2 % (0-4.4); Hematocrit 44.3 % (42.0-52.0); Hemoglobin 14.5 g/dL (14.0-18.0); Immature Granulocyte Absolute 0.03 K/mm3 (0.00-0.031); Immature Granulocyte Percent A 0.3 % (0-0.5); Lymphocytes Absolute Auto 3.07 K/mm3 (0.9-3.2); Lymphocytes Percent Auto 34.8 % (18.3-44.2); Mean Corpuscular HGB Conc 32.7 g/dl (32-36); Mean Corpuscular Hemoglobin 29.9 pg (26-34); Mean Corpuscular Volume 91.3 fl (80-100); Mean Platelet Volume 12.2 fl (7.4-10.4); Monocytes Absolute Auto 0.7 K/mm3 (0.1-0.6); Monocytes Percent Auto 7.5 % (2.6-8.5); Neutrophils Absolute Auto 4.8 K/mm3 (1.3-6.7); Neutrophils Percent Auto 54.6 % (45.5-73.1); Platelet Count Result 185 k/mm3 (150-375); Red Blood Count 4.85 M/mm3 (4.6-6.20); White Blood Count 8.8 K/mm3 (4.5-10.0)
[2024-12-27 23:27] LABS: Alanine Aminotransferase 51 U/L (6-50); Albumin Level 4.8 g/dL (3.5-5.1); Alkaline Phosphatase 91 U/L (38-126); Anion Gap 13 mmol/L (4-12); Aspartate Amino Transferase 49 U/L (17-59); Bilirubin,Total 0.3 mg/dL (0.2-1.3); Blood Urea Nitrogen 15 mg/dL (9-20); Calcium 9.5 mg/dL (8.4-10.2); Carbon Dioxide 21 mmol/L (22-30); Chloride 105 mmol/L (98-107); Estimated CRCL calculation 114 ml/min; Estimated Glomerular Filt Rate > 60; Glucose 107 mg/dL (65-110); Lipase 115 U/L (23-300); Sodium 139 mmol/L (137-145)
[2024-12-27 23:29] LABS: INR 0.9
[2024-12-27 23:30] LABS: Partial Thromboplastin Time 21.6 Seconds (22.3-36.8)
[2024-12-27 23:35] VITALS: BP 133/75; PULSE 74; RESP 14; O2SAT 99
[2024-12-27 23:37] LABS: Troponin I < 0.012 ng/mL (0.000-0.034)
[2024-12-27] MEDS: BELLADONNA ALK/PHENOB ELIX 10 ML, MAG HYDROX/ALUMINUM HYD/SIMETH 30 ML, LIDOCAINE 2% VI... PO (23:48)
[2024-12-27 23:54] LABS: D Dimer 0.33 ug/mL (<0.48)
[2024-12-28 01:52] VITALS: BP 151/71; PULSE 72; RESP 15; O2SAT 99
[2024-12-28 02:01] LABS: Troponin I < 0.012 ng/mL (0.000-0.034)
[2024-12-28 02:14] VITALS: BP 143/94; PULSE 64; RESP 17; O2SAT 99
== END 2024-12-28 02:15 | disposition home or self-care (01) ==
PROVIDERS: Emergency Medicine; Emergency Provider Physician Assistant
DX: R07.89 Other chest pain (principal); K21.9 Gastro-esophageal reflux disease without esophagitis; F17.210 Nicotine dependence, cigarettes, uncomplicated
CPT/HCPCS: 36415; 71046; 80053; 83690; 84484; 85025; 85380; 85610; 85730; 93005; 99284; A9270

== ENCOUNTER 2025-04-21 13:56 | Emergency (ER) | payer OTHER, SELFPAY ==
--- NOTE | 2025-04-21 13:57 | ED_ITS ---
HPI - General Adult General Chief complaint: Back Pain/Injury Stated complaint: RT Side Pain Time Seen by Provider: 04/21/25 13:56 Source: patient Mode of arrival: ambulatory Limitations: no limitations History of Present Illness HPI narrative: Patient is a 44-year-old male who presents with right lower back pain for 1 week. Patient states he was pulling on something at work when he felt sharp shooting pain that dropped into his knees. Since then he has tried Tylenol, Onel-Westfall and patches with no relief. Denies any pain radiating down his legs. Worse with twisting and bending. Denies any fever, chills, nausea, vomiting, diarrhea. Denies any numbness, tingling or weakness in legs. Denies any loss bowel or bladder Related Data Allergies Allergy/AdvReac Type Severity Reaction Status Date / Time No Known Allergies Allergy Verified 12/27/24 22:22 Review of Systems Review of Systems: All systems reviewed & are unremarkable except as noted in HPI and below Constitutional: Constitutional: Denies body ache(s), Denies chills, Denies fatigue, Denies fever(s), Denies headache(s), Denies malaise and Denies weakness Eyes: Eyes: Denies blurry vision, Denies irritation and Denies loss of vision ENT: Denies otalgia, Denies headache(s), Denies nasal discharge, Denies sinus pain and Denies sore throat Cardiovascular: Cardiovascular: Denies chest pain, Denies irregular heart rhythm and Denies dyspnea Respiratory: Respiratory: Denies dyspnea Gastrointestinal: Gastrointestinal: Denies abdominal pain, Denies melena, Denies hematochezia, Denies diarrhea, Denies nausea and Denies vomiting Musculoskeletal: Musculoskeletal: Reports back pain, Denies myalgias and Denies arthralgias Integumentary/Breasts: Skin/Breast: Denies pruritus and Denies rash Neurologic: Denies headache(s), Denies loss of vision and Denies weakness Psychiatric: Psychiatric: Reports no additional psychiatric complaints Endocrine: Endocrine: Denies fatigue PMFSH Past Medical History Medical History No acute medical problems Family History Family History Other Diabetes mellitus Social History Social History Smoking packs per day: 1 Smoking cigarettes per day: 20.0 Smoking status: Current every day smoker Alcohol intake: current Gender identity (if verbalized by the patient): Male Comments At time of signature, agree with nursing past medical, surgical, social and family history. There is no relevant family history pertinent to the presenting complaint. Exam Const: General: cooperative, healthy appearing, comfortable, no acute distress and well nourished Nutritional Appearance: well nourished Orientation/consciousness: patient oriented x3 Limitations: no limitations HENMT: Head: normal to inspection, normocephalic and atraumatic Ears: hearing grossly normal bilaterally and external ears normal Face/Nose/Sinus: Normal external nose present, normal facial exam and face symmetric Face and sinus: normal facial exam and face symmetric Mouth: Yes lip normal Eyes: General: appearance normal, both eyes and all related structures Alignment and Position: alignment normal and position normal Periorbital: periorbital findings normal Eyelids: eyelids normal Pupils: Equal, round and reactive pupils present EOM: EOMs intact bilaterally Neck: Neck: normal visual inspection, full ROM and supple Chest: Chest palpation & inspection: normal inspection of the chest Resp: Effort & Inspection: normal respiratory effort and able to speak in complete sentences Auscultation: clear to auscultation bilaterally Cardio: Rate: regular rate Rhythm: regular rhythm Heart sounds: S1 normal heart sound present and S2 normal heart sound present GI: Inspection: normal to inspection Back/Spine/Pelvis: Thoracic/Lumbar Spine: thoracic and lumbar spine normal to inspection, pain with thoraco-lumbar ROM, paraspinal muscle tenderness on the right in the lower lumbar, thoraco-lumbar ROM limited (Due to pain) with forward flexion, with rotation to the right and with rotation to the left, No thoracic spinal tenderness and No lumbar spinal tenderness Pelvis: no buttock tenderness, no buttock swelling and no sciatic notch tenderness Skin: General skin exam: normal color and no rashes or lesions noted Neuro: General: patient oriented x3 and moves all extremities Cranial nerves: Yes Equal, round and reactive pupils present Speech: normal speech Gait exam (Neuro): Normal gait present Extrem: General: normal to inspection, full ROM and no edema Psych: Appearance: grossly normal and well kempt Mental Status: mental status grossly normal Speech and movement: Normal speech and movement present Affect: normal affect Attitude: cooperative Thought process: Normal thought process present Course Course Emergency Course: Patient is aware of diagnosis, understands and agrees to treatment plan. Anticipatory guidance given. Patient agrees to follow-up as directed and is aware of reasons to seek care at the emergency department. Portions of this record may have been created with voice recognition software Level of Care: Express Care Visit Vital Signs Vital signs: Vital Signs Temperature 36.4 C L 04/21/25 14:00 Pulse Rate 69 04/21/25 14:00 Respiratory Rate 16 04/21/25 14:00 Blood Pressure 141/84 H 04/21/25 14:00 Pulse Oximetry 100 04/21/25 14:00 Oxygen Delivery Room Air 04/21/25 14:00 Temperature 36.4 C L 04/21/25 14:00 Pulse Rate 69 04/21/25 14:00 Respiratory Rate 16 04/21/25 14:00 Blood Pressure 141/84 H 04/21/25 14:00 Pulse Oximetry 100 04/21/25 14:00 Oxygen Delivery Room Air 04/21/25 14:00 Reviewed Medical Decision Making MDM Narrative Medical decision making narrative: No risk factors or findings concerning for epidural abscess, diskitis, vertebral osteomyelitis, cord compression, cauda equina, vertebral fracture or bone malignancy, AAA, or pyelonephritis. Patient instructed to consider further imaging and workup through their primary care physician as an outpatient if symptoms persist. Pt well hydrated appearing, in no respiratory distress, hemodynamically stable. Recommend supportive care. The patient is stable at time of discharge the clinical impression was discussed and the patient was given the opportunity to ask questions, which were addressed as completely as possible given the information available at present. Anticipatory guidance and return to care precautions were discussed and the importance of primary care follow-up was stressed and encouraged. The patient voiced understanding of the plan, indications to return, and the need for follow-up. Exam findings show no acute concerns or changes Patient is appropriate for outpatient treatment and follow-up. Differential Diagnosis Differential Diagnosis: Lumbar strain, sciatica most likely kidney stone or pyelonephritis Medical Records Medical records reviewed: Yes I reviewed the external patient's medical records. Vital Signs Vital Signs: Vital Signs Temperature 36.4 C L 04/21/25 14:00 Pulse Rate 69 04/21/25 14:00 Respiratory Rate 16 04/21/25 14:00 Blood Pressure 141/84 H 04/21/25 14:00 Pulse Oximetry 100 04/21/25 14:00 Oxygen Delivery Room Air 04/21/25 14:00 Temperature 36.4 C L 04/21/25 14:00 Pulse Rate 69 04/21/25 14:00 Respiratory Rate 16 04/21/25 14:00 Blood Pressure 141/84 H 04/21/25 14:00 Pulse Oximetry 100 04/21/25 14:00 Oxygen Delivery Room Air 04/21/25 14:00 Reviewed Discharge Plan Discharge Clinical Impression: Lumbar strain Qualifiers: Encounter type: initial encounter Qualified Code(s): S39.012A - Strain of muscle, fascia and tendon of lower back, initial encounter Patient Disposition: Home Condition: Stable Instructions: Low Back Strain (ED), Lower Back Exercises (ED) Additional Instructions: Take steroids in the morning with food, take muscle relaxers every 8 hours as needed for muscle spasm. do not drive or make any important decisions while on this medication for it can make you drowsy Exercise:Combine aerobic exercise, like walking or swimming, with specific exercises to keep the muscles in your back and abdomen strong and flexible.bed rest is not recommended. Proper Lifting:Be sure to lift heavy items with your legs, not your back. Do not bend over to pick something up. Keep your back straight and bend at your knees. Weight:Maintain a healthy weight. Being overweight puts added stress on your lower back. Avoid Smoking:Both the smoke and the nicotine cause your spine to age faster than normal. Proper Posture:Good posture is important for avoiding future problems. A therapist can teach you how to safely stand, sit, and lift. Use warm moist heat or ice to help with pain. Follow up with Primary provider in 2-3 days, This may become a chronic condition and they will be the one to help manage your pain and order additional testing. Follow-up with your doctor for further care and evaluation or seek ER if you develop problems with bladder/bowel function, weakness or loss of feeling in one or both of your legs. Your blood pressure was elevated above 120/80 today at Urgent Care. This puts you above the threshold for follow up visit with a primary care provider. High blood pressure does not usually cause any symptoms, however it may lead to kidney failure, stroke, heart disease just to name a few if untreated . Many people are anxious when seeing a provider or nurse. As a result, you are not diagnosed with hypertension at this time unless your blood pressure is persistently high at two office visits at least one week apart. Some things that can help lower blood pressure are lifestyle modifications, such as light exercise, decreased salt in diet, and weight loss. It is important to follow up with a PCP about this within 1 week. Tiro esteroides por la ma?marielos con las comidas y relajantes musculares cada 8 horas seg?n sea necesario para los espasmos musculares. No conduzca ni tome decisiones importantes mientras est? tomando shahana medicamento, ya que puede causar somnolencia. Ejercicio: Combine ejercicio aer?bico, pamela caminar o nadar, con ejercicios espec?ficos para mantener los m?sculos de la espalda y el abdomen natalia y flexibles. No se recomienda el reposo en cama. Levantar objetos pesados ??correctamente: Aseg?rese de levantar objetos pesados ??con las piernas, no con la espalda. No se agache para recoger algo. Mantenga la espalda recta y flexione las rodillas. Peso: Mantenga un peso saludable. El sobrepeso aumenta la tensi?n en la yonatan lumbar. Evite fumar: Tanto el humo pamela la nicotina provocan un envejecimiento m?s r?pido de lo normal de la columna vertebral. Postura correcta: Hussein buena postura es importante para evitar problemas futuros. Un terapeuta puede ense?arle a ponerse de pie, sentarse y levantar objetos de forma brand. Use calor h?medo tibio o hielo para aliviar el dolor. Acuda a hussein john de seguimiento con vernon m?dico de cabecera en 2 o 3 d?as. Esta afecci?n puede volverse cr?kim y ser? ?l quien le ayude a controlar el dolor y le solicite pruebas adicionales. Consulte con vernon m?dico de cabecera para recibir atenci?n y evaluaci?n adicionales o acuda a urgencias si presenta problemas con la funci?n vesical/in testinal, debilidad o p?rdida de sensibilidad en hussein o ambas piernas. Hoy, en Urgencias, vernon presi?n arterial super? los 120/80. [place] le permite hussein consulta de seguimiento con un m?dico de cabecera. La hipertensi?n no suele presentar s?ntomas; sin embargo, si no se trata, puede causar insuficiencia renal, accidente cerebrovascular y cardiopat?a, por nombrar solo algunos. Muchas personas se sienten ansiosas al consultar con un m?dico o enfermero. Por lo tanto, no se le diagnostica hipertensi?n en shahana momento, a menos que vernon presi?n arterial se mantenga jorge en dos consultas con al menos hussein semana de diferencia. Algunos cambios en el estilo de [place], pamela ejercicio ligero, reducci?n de ramonita en la dieta y p?rdida de peso, pueden ayudar a bajar la presi?n arterial. Es importante consultar con un m?dico de cabecera sobre esto en el plazo de hussein semana. Patient Language: Macedonian Prescriptions: New prednisone 20 mg tablet 40 mg PO DAILY 5 Days Qty: 10 0RF baclofen 10 mg tablet 10 mg PO TID 5 Days Qty: 15 0RF No Action pantoprazole [Protonix] 40 mg tablet,delayed release (DR/EC) 40 mg PO HS 30 Days Qty: 30 0RF pantoprazole [Protonix] 40 mg tablet,delayed release (DR/EC) 40 mg PO HS 28 Days Qty: 28 0RF sucralfate 1 gram tablet 1 g PO QID Qty: 60 0RF Follow-up/Referrals: Marleny Rossi PTA [Primary Care Provider, Nursing] - 3 Days Stand Alone Forms: Work/School Release IP Time of Disposition: 14:19
[2025-04-21 14:00] VITALS: BP 141/84; PULSE 69; RESP 16; TEMP 36.4; O2SAT 100
== END 2025-04-21 14:26 | disposition home or self-care (01) ==
PROVIDERS: Emergency Provider Nurse Practitioner Family
DX: S39.012A Strain of muscle, fascia and tendon of lower back, initial encounter (principal); X50.0XXA Overexertion from strenuous movement or load, initial encounter; Y99.0 Civilian activity done for income or pay; F17.210 Nicotine dependence, cigarettes, uncomplicated
CPT/HCPCS: 99213; G0463